=== PATIENT | female | born 2005 | race Caucasian/White ===

== ENCOUNTER 2025-06-08 10:35 | Outpatient (OUT) | payer BC, SELFPAY ==
--- OUTSIDE RECORDS SUMMARY | 2025-06-08 10:41 | XMS_ITS | Clinical Summary ---
Author Organization [facility] [employer] [facility] tem Address [id number] [address] [place] [address] Care Team Providers Care Training Specialist Name Role Phone Keily Burleson MD Primary Care Provider [phone] Allergies No known active allergies Medications loratadine (CLARITIN) 10 mg tablet Take 1 tablet (10 mg total) by mouth in the morning. Active hydrOXYzine (ATARAX) 10 mg tabletIndicatio ns:Social anxiety disorder Take 1 tablet (10 mg total) by mouth every 8 (eight) hours as needed for anxiety. 90 tablet 2 5 Active montelukast (SINGULAIR) 10 mg tablet Take 1 tablet (10 mg total) by mouth in the morning. 90 tablet 2 5 Active methylPREDNISol one (MEDROL, MAI,) 4 mg tablet Take 1 tablet (4 mg total) by mouth in the morning. follow package directions. 21 tablet 5 Active Additional Information Patient not taking.Reported on 04/22/2025 FLUoxetine (PROzac) 40 mg capsuleIndicati ons:Social anxiety disorder Take 1 capsule (40 mg total) by mouth in the morning. 90 capsule 2 5 Active valACYclovir (VALTREX) 1000 mg tabletIndicatio ns:Cold sore Take 2 tablets (2,000 mg total) by mouth in the morning and 2 tablets (2,000 mg total) before bedtime. 4 tablet 11 5 Active Active Problems No known active problems Encounters Date Type Department Care Team Description 04/30/2025 Results Follow-Up [facility] [address] [place] [phone] Margo Caldwell CNA CBC auto differential, Comprehensive metabolic panel 04/22/2025 3:00 PM EDT Office Visit [address] [phone] Darlyn Zimmer APRN-CNP Wellness examination (Primary Dx); Social anxiety disorder; Cold sore; History of anemia 04/22/2025 Travel 04/13/2025 8:28 PM EDT - 04/13/2025 9:10 PM EDT Emergency [facility] - Emergency [address] [place] [phone] Tian Stapleton MD Contusion of right great toe without damage to nail, initial encounter (Primary Dx) Discharge Disposition: Home 04/13/2025 Travel 03/19/2025 7:40 AM EDT Office Visit [address] [phone] Darlyn Zimmer APRN-CNP Acute bronchitis, unspecified organism (Primary Dx); Body aches 03/19/[address] [phone] Margo Caldwell CNA Results 03/19/2025 Travel 03/11/2025 Travel from Last 3 Months Immunizations Immunization Administration Dates Next Due Td, Unspecified 04/24/2017 Family History Medical History Relation Name Comments Hypertension Father Heart disease Maternal Grandfather Heart failure Maternal Grandfather Thyroid disease Mother Breast cancer Paternal Grandmother Relation Name Status Comments Father Maternal Grandfather Mother Paternal Grandmother Social History Tobacco Use Types Packs/Day Years Used Date Smoking Tobacco: Never Smokeless Tobacco: Never Alcohol Use Standard Drinks/Week Comments Never 0 (1 standard drink = 0.6 oz pur e alcohol) AUDIT-C Answer Date Recorded Q1: How often do you have a drink containing alc ohol? Never 07/25/2020 Average Number of Drinks Not on file 020 Frequency of Binge Drinking Not on file 07/15 Overall Financial Resource Strain (CARDIA) Answe r Date Recorded How hard is it for you to pa y for the very basics like food, housing, medical care, and heating? Not hard at all 10/20/2024 PHQ-2 Answer Date Recorded Total Score 0 04/22/2025 PRAPARE - Transportation Answer Date Re corded In the past 12 months, has l ack of transportation kept you from medical appointments or from getting medications? No 03/2025 In the past 12 months, has l ack of transportation kept you from meetings, work, or from getting things needed for daily living? No 10/20/2024 Housing Instability Answer Date Recorde d Are you worried or concerned that in the next two months you may not have stable housing that you own, rent or stay in as a part of a household? No 10/20/2024 Childcare Answer Date Recorded Childcare Unknown 03/24/2019 Employment Answer Date Recorded Employment Unknown 03/24/2019 Hunger Screening Answer Date Recorded Within the past 12 months we worried whether our food would run out before we got money to buy more. Never True 04/22/2025 Within the past 12 months th e food we bought just didn't last and we didn't have money to get more. Never True 04/22/2025 Purpose - Life Answer Date Recorded Purpose and direction in life Unknown Comments No Sex and Gender Information Value Date Recorded Sex Assigned at Female 10/20/2024 1:54 PM EST Legal Sex Female 3:05 PM EDT Gender Identity Female 10/20/2024 1:54 PM EST Sexual Orientation Straight 10/20/2024 1: 54 PM EST Last Filed Vital Signs Vital Sign Reading Time Taken Comments Blood Pressure 118/64 04/22/2025 3:05 PM EDT Pulse 70 04/22/2025 3:05 PM EDT Temperature 36.7 C (98 F) 04/22/2025 3:05 PM EDT Respiratory Rate 18 04/13/2025 8:51 PM EDT Oxygen Saturation 99% 04/22/2025 3:05 PM EDT Inhaled Oxygen Concentration - - Weight 70.3 kg (155 lb) 04/22/2025 3:05 PM EDT Height 167.6 cm (5' 6 ) 04/22/2025 3:05 PM EDT Body Mass Index 25.02 04/22/2025 3:05 PM EDT Plan of Treatment Upcoming Encounters Date Type Department Care Team (Late st Contact Info) Description 04/27/2026 2:30 PM EDT Office Visit [facility] [address] [place] [phone] Keily Burleson MD [address], [place] [address] Health Maintenance Due Date Last Done Comments Chlamydia Screening 2005 DTaP,Tdap and Td Vaccines (6 - Tdap) 04/25/2017 04/24/2017, 05/27/2010, 08/04/2009, Additional history exists Adult BMI Follow Up Plan 2023 Influenza Vaccine 06/15/2025 07/27/2023, , 07/07/2019, Additional history exists Adult BMI Screening 04/22/2026 04/22/2025 Depression Screening 04/22/2026 04/22/2025 Tobacco Screening 04/26/2026 04/26/2025 Medical Devices Not on file Procedures Procedure Name Priority Date/Time Associated Diagnosis Comments COMPREHENSIVE METABOLIC PANEL Routine 04/22/2025 3:29 PM EDT Wellness examination CBC WITH AUTO DIFFERENTIAL Routine 04/22/2025 3:29 PM EDT Wellness examination History of anemia XR TOE RT GREAT TOE MIN 2 VWS STAT 04/13/2025 8:38 PM EDT POCT XPERT, XPRESS COV-2, FLU, RSV PLUS (CEPHEID) Routine 03/19/2025 8:49 AM EDT Body aches from Last 3 Months Results * CBC auto differential (04/22/2025 3:29 PM EDT) WBC 5.0 4 - 11 x10E9/L 04/22/2025 6:49 PM EDT [facility] RBC Count 4.08 3.8 - 5.2 X10E12/L 04/22/2025 6:49 PM EDT [facility] Hemoglobin 12.3 11.7 - 15.5 g/dL 04/22/2025 6:49 PM EDT [facility] Hematocrit 36.9 35 - 47 % 04/22/2025 6:49 PM EDT [facility] MCV 91 80 - 100 fL 04/22/2025 6:49 PM EDT [facility] MCH 30.1 27 - 34 pg 04/22/2025 6:49 PM EDT [facility] MCHC 33.2 32 - 36 g/dL 04/22/2025 6:49 PM EDT [facility] RDW 13.0 11.5 - 15 % 04/22/2025 6:49 PM EDT [facility] Platelet Count 248 150 - 450 X10E9/L 04/22/2025 6:49 PM EDT [facility] MPV 8.9 7 - 12 fL 04/22/2025 6:49 PM EDT [facility] Neutrophils % 38.8 % 04/22/2025 6:49 PM EDT [facility] Lymphocytes % 41.7 % 04/22/2025 6:49 PM EDT [facility] Monocytes % 12.5 % 04/22/2025 6:49 PM EDT [facility] Eosinophils % 5.6 % 04/22/2025 6:49 PM EDT [facility] Basophils % 1.4 % 04/22/2025 6:49 PM EDT [facility] Neutrophils Absolute (A) 1.9 1.5 - 6.6 10*3/uL 04/22/2025 6:49 PM EDT [facility] Lymphocytes Absolute 2.1 1.0 - 3.5 10*3/uL 04/22/2025 6:49 PM EDT [facility] Monocytes Absolute 0.6 0.0 - 0.9 10*3/uL 04/22/2025 6:49 PM EDT [facility] Eosinophils Absolute 0.3 0.0 - 0.4 10*3/uL 04/22/2025 6:49 PM EDT [facility] Basophils Absolute 0.1 0.0 - 0.2 10*3/uL 04/22/2025 6:49 PM EDT [facility] Differential Type AUTOMATED DIFFERENTIAL 04/22/2025 6:49 PM EDT [facility] Blood Venous blood / Unknown Venipuncture / Unknown 04/22/2025 3:29 PM EDT 04/22/2025 3:31 PM EDT us Darlyn Zimmer CORRESPONDENCE REVIEW CLERK-HOME HEALTH CARE RESPIRATORY THERAPIST LAB BLOOD ORDERABLES Fi nal Result [facility] [address] [place] [address], [place] [phone] * (ABNORMAL) Comprehensive metabolic panel (04/22/2025 3:29 PM EDT) SODIUM 139 134 - 146 mmol/L 04/22/2025 6:50 PM EDT [facility] POTASSIUM 4.2 3.5 - 5.0 mmol/L 04/22/2025 6:50 PM EDT [facility] CHLORIDE 106 98 - 109 mmol/L 04/22/2025 6:50 PM EDT [facility] CARBON DIOXIDE 24 22 - 32 mmol/L 04/22/2025 6:50 PM EDT [facility] ANION GAP 9 5 - 15 mmol/L 04/22/2025 6:50 PM EDT [facility] BLOOD UREA NITROGEN 11 5 - 23 mg/dL 04/22/2025 6:50 PM EDT [facility] CREATININE 0.65 0.40 - 1.00 mg/dL 04/22/2025 6:50 PM EDT [facility] Comment:METHOD TRACEABLE TO IDMS STANDARD GLUCOSE 77 65 - 99 mg/dL 04/22/2025 6:50 PM EDT [facility] CALCIUM 9.5 8.5 - 10.5 mg/dL 04/22/2025 6:50 PM EDT [facility] TOTAL PROTEIN 7.2 6.0 - 8.0 g/dL 04/22/2025 6:50 PM EDT [facility] ALBUMIN 4.3 3.2 - 5.3 g/dL 04/22/2025 6:50 PM EDT [facility] ALKALINE PHOSPHATASE 34(L) 39 - 130 U/L 04/22/2025 6:50 PM EDT [facility] AST 21 <=41 U/L 04/22/2025 6:50 PM EDT [facility] ALT 15 <=31 U/L 04/22/2025 6:50 PM EDT [facility] BILIRUBIN,TOTAL 0.2(L) 0.3 - 1.2 mg/dL 04/22/2025 6:50 PM EDT [facility] EGFR Non-Race Dependent >90 >=60 ml/min/1.7 3sq.m 04/22/2025 6:50 PM EDT [facility] Comment: Reported eGFR is based on the CKD-EPI 2020 equation that does not use a race coefficient. Blood Venous blood / Unknown Venipuncture / Unknown 04/22/2025 3:29 PM EDT 04/22/2025 3:31 PM EDT Darlyn Zimmer CORRESPONDENCE REVIEW CLERK-HOME HEALTH CARE RESPIRATORY THERAPIST LAB BLOOD ORDERABLES Fi nal Result [facility] [address] [place] [address], * X-ray toe right great minimum 2 views (04/13/2025 8:38 PM EDT) Anatomical Region Laterality Modality Lower Extremities, MSK, Toes Right Com puted Radiography 04/13/2025 9:09 PM EDT Narrative 04/13/2025 9:12 PM EDT RIGHT GREAT TOE 3 VIEW COMPARISON: 05/22/2016 HISTORY: Right great toe injury. FINDINGS: AP foot and oblique and lateral views of the right great toe obtained. No evidence for an acute fracture or dislocation of the right great toe. No destructive lesion. Transverse lucency with an apparent sclerosis of the medial cuneiform. IMPRESSION: 1. No evidence for an acute fracture or dislocation. 2. Transverse lucency and apparent sclerosis of the medial cuneiform bone. This appearance could be due to overlapping structures, congenital anomaly, or age-indeterminate (but likely chronic) fracture. If patient has tenderness in this region, dedicated radiographs of the right foot to include oblique and lateral views as well as repeat AP view could be considered. Finalized by Kyree Hermosillo MD on 04/13/2025 9:12 PM Procedure Note Kyree Hermosillo MD - 04/13/2025 RIGHT GREAT TOE 3 VIEW COMPARISON: 05/22/2016 HISTORY: Right great toe injury. FINDINGS: AP foot and oblique and lateral views of the right great toe obtained. Noevidence for an acute fracture or dislocation of the right great toe. Nodestructive lesion. Transverse lucency with an apparent sclerosis of themedial cuneiform. IMPRESSION: 1. No evidence for an acute fracture or dislocation. 2. Transverse lucency and apparent sclerosis of the medial cuneiform bone.This appearance could be due to overlapping structures, congenitalanomaly, or age-indeterminate (but likely chronic) fracture. If patienthas tenderness in this region, dedicated radiographs of the right foot toinclude oblique and lateral views as well as repeat AP view could be considered. Finalized by Kyree Hermosillo MD on 04/13/2025 9:12 PM Tian Stapleton MD [facility] ORDERABL ES Final Result * POCT Xpert, Xpress CoV-2, FLU, RSV Plus (Cepheid) (03/19/2025 8:49 AM EDT) External Poct Influenza A Cepheid Negative Negative MANUALLY TRANSCRIBED RESULTS External Poct Influenza B Cepheid Negative Negative MANUALLY TRANSCRIBED RESULTS External Poct Sars Cov 2 Cepheid Negative Negative MANUALLY TRANSCRIBED RESULTS External Poct Rsv Cepheid Negative Negative MANUALLY TRANSCRIBED RESULTS Swab 03/19/2025 8:49 AM EDT Darlyn Zimmer CORRESPONDENCE REVIEW CLERK-HOME HEALTH CARE RESPIRATORY THERAPIST POINT OF CARE TEST DARNELL ANTHONY Final Result MANUALLY TRANSCRIBED RESULTS from Last 3 Months Insurance ANTHEM Care Teams Training Specialist Relationship Specialty Start Date End Date Keily Burleson MD [address] [place] [address] [place] [address] PCP - General Internal Medicine 11/07/23
--- NOTE | 2025-06-08 11:00 | XR_ITS ---
[facility] [place] [id number] Patient Name: EZRA GONZALEZ MRN: [id number] date: 2005 Sex: F Assigned Patient Location: [facility] Current Patient Location: [facility] Accession/Order Number: [id number] Exam Date: 06/08/2025 10:48 Report Date: 06/08/2025 12:38 At the request of: MALLORIE REBOLLEDO DPPanfilo Procedure: XR foot RT min 3V 4 views right foot plain film COMPARISON:05/09/2022 HISTORY: First metatarsal pain. 2 months ago. ACUTE FINDINGS: None DEGENERATIVE CHANGE: Unremarkable SOFT TISSUE FINDINGS: Unremarkable JOINT EFFUSION: None POSTOP CHANGES: Stable postsurgical changes. No hardware failure. BONE MINERALIZATION: Adequate XR/XR foot RT min 3V IMPRESSION: Stable findings Impression dictated by: Lamine Bellamy M.D. 06/08/2025 12:38 PM Dictation Location: [place] [address] Electronically authenticated by: [id number] Y Date: 06/08/2025 12:38
== END 2025-06-08 10:36 | disposition home or self-care (01) ==
LOC: RAD 10:40
PROVIDERS: PCP Student in an Organized Health Care Education/Training Program; Visit Provider Podiatrist Foot & Ankle Surgery
DX: M79.671 Pain in right foot (principal); Z98.890 Other specified postprocedural states
CPT/HCPCS: 73630